=== PATIENT | male | born 2000 | race Hispanic/Latino ===

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

== ENCOUNTER 2022-05-25 23:14 | Emergency (ER) | payer MEDICAID ==
[~2022-05-25] VITALS: Ht 177.8 cm; Wt 101.6 kg
[2022-05-26] MEDS ORDERED: CYCLOBENZAPRINE HCL 10 MG TABLET PO ONE (00:30)
[2022-05-26] MEDS ORDERED: KETOROLAC 30MG VIAL (30MG/ML) IVP ONE (00:30)
[2022-05-26 01:38] VITALS: BP 122/71
[2022-05-26] MEDS ORDERED: IBUP-2077 PO (02:07)
[2022-05-26] MEDS ORDERED: CYCL-309 PO (02:09)
== END 2022-05-26 02:16 | disposition home or self-care (01) ==
LOC: EDH 23:14
DX: G43.909 Migraine, unspecified, not intractable, without status migrainosus (principal)
CPT/HCPCS: 99283; 96374; J1885